=== PATIENT | female | born 1970 | race American Indian/Alaskan Native ===

== ENCOUNTER 2016-11-07 12:17 | Emergency (ER) | payer SELFPAY | END 2016-11-07 12:18 | disposition left against medical advice (07) | LOC: ED 12:17 | DX: M79.605 Pain in left leg (principal); Z53.21 Procedure and treatment not carried out due to patient leaving prior to being seen by health care provider ==

== ENCOUNTER 2016-11-10 15:31 | Emergency (ER) | payer SELFPAY ==
--- NOTE | 2016-11-10 20:09 | Emergency Department Report ---
ED Back Pain/Injury HPI - General Chief Complaint: Back Pain/Injury Stated Complaint: LOWER BACK PAIN - POSSIBLE PINCHED NERVE Time Seen by Provider: 11/10/16 19:44 Source: patient Mode of arrival: Ambulatory Limitations: No Limitations - History of Present Illness Initial Comments: PT states she drove herself to the ED for low back pain that radiates down L leg x 1 week. PT states the pain has been 10/10 for 1 week. 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 PT states she has had mild low back pain that radiates down L leg x 3-4 months. PT states she did not have a specific injury that she can recall. PT states the pain is worse sitting and driving. PT states she took Motrin at 1300 without relief. PT States she looked it up and she thinks she has a pinched nerve. Complaint: back pain -: Gradual, week(s) (worsened pain x 1 week ), month(s) (mild pain x months ) Similar Symptoms Previously: Yes Place: home, work Radiation: buttocks, left leg Severity: severe Severity scale (0 -10): 10 Quality: sharp Consistency: constant Improves With: none Worsens With: movement, sitting upright, walking Context: unknown Associated Symptoms: denies other symptoms. denies: difficulty urinating, incontinence, abdominal pain, nausea/vomiting - Related Data Previous Rx's Medication Instructions Recorded Last Taken Type Acetaminophen/Codeine [Tylenol #3] 1 tab PO Q6H PRN #12 tab 11/10/16 Unknown Rx methOCARBAMOL [Robaxin TAB] 500 mg PO Q6H PRN #15 tablet 11/10/16 Unknown Rx methylPREDNISolone [Medrol] 4 mg PO DAILY #1 tab.ds.pk 11/10/16 Unknown Rx Allergies Allergy/AdvReac Type Severity Reaction Status Date / Time No Known Allergies Allergy Verified 11/10/16 15:38 ED Review of Systems ROS: Stated complaint: LOWER BACK PAIN - POSSIBLE PINCHED NERVE Other details as noted in HPI Comment: All other systems reviewed and negative Constitutional: chills (cold in exam room ). denies: fever Cardiovascular: denies: chest pain, edema Gastrointestinal: denies: abdominal pain, nausea, vomiting Musculoskeletal: as per HPI, back pain Skin: denies: rash, change in color ED Past Medical Hx - Past Medical History Previous Medical History?: No - Surgical History Past Surgical History?: Yes Additional Surgical History: hysterectomy, knee - Social History Smoking Status: Never Smoker Substance Use Type: None - Medications Home Medications: Home Medications Medication Instructions Recorded Confirmed Last Taken Type Acetaminophen/Codeine [Tylenol #3] 1 tab PO Q6H PRN #12 tab 11/10/16 Unknown Rx methOCARBAMOL [Robaxin TAB] 500 mg PO Q6H PRN #15 tablet 11/10/16 Unknown Rx methylPREDNISolone [Medrol] 4 mg PO DAILY #1 tab.ds.pk 11/10/16 Unknown Rx ED Physical Exam - General Limitations: No Limitations General appearance: alert, in no apparent distress - Head Head exam: Present: atraumatic, normocephalic, normal inspection - Eye Eye exam: Present: normal appearance, PERRL. Absent: conjunctival injection Pupils: Present: normal accommodation - ENT ENT exam: Present: normal exam, mucous membranes moist, normal external ear exam - Neck Neck exam: Present: normal inspection, full ROM. Absent: tenderness, meningismus - Respiratory Respiratory exam: Present: normal lung sounds bilaterally. Absent: respiratory distress, chest wall tenderness - Cardiovascular Cardiovascular Exam: Present: regular rate, normal rhythm, normal heart sounds - GI/Abdominal GI/Abdominal exam: Present: soft, normal bowel sounds. Absent: distended, tenderness, guarding, rebound - Extremities Exam Extremities exam: Present: normal inspection, full ROM, normal capillary refill. Absent: tenderness, pedal edema, joint swelling, calf tenderness - Back Exam Back exam: Present: normal inspection, full ROM, tenderness, muscle spasm, paraspinal tenderness (L). Absent: CVA tenderness (R), CVA tenderness (L) - Expanded Back Exam Expanded Back exam: Absent: saddle anesthesia Back exam: Sciatic Notch Tenderness: Left, Negative Straight Leg Raising: Left, Right - Neurological Exam Neurological exam: Present: alert, oriented X3 - Psychiatric Psychiatric exam: Present: normal affect, normal mood - Skin Skin exam: Present: warm, dry, intact, normal color ED Course Vital Signs 11/10/16 15:38 Temperature 98.1 F Pulse Rate 74 Respiratory 16 Rate Blood Pressure 132/68 O2 Sat by Pulse 100 Oximetry - Reevaluation(s) Reevaluation #1: 11/10/16 20:09 PT aware of dx and plan of care. PT has no questions at this time. Reevaluation #2: 11/10/16 21:19 PT states her back is feeling better sp Solumedrol - Pulse Oximetry Interpretation Digit-Finger Initial Pulse Oximetry Readin Actions Taken: none ED Medical Decision Making - Differential Diagnosis strain, sciatica, Critical Care Time: No Critical care attestation.: If time is entered above; I have spent that time in minutes in the direct care of this critically ill patient, excluding procedure time. ED Disposition Clinical Impression: Low back pain Qualifiers: Chronicity: unspecified Back pain laterality: left Sciatica presence: with sciatica Sciatica laterality: sciatica of left side Qualified Code(s): M54.42 - Lumbago with sciatica, left side Disposition: TO HOME OR SELFCARE Is pt being admited?: No Does the pt Need Aspirin: No Condition: Stable Instructions: Sciatica (ED), Acute Low Back Pain (ED), Lumbar Radiculopathy (ED ) Additional Instructions: No driving or Alcohol after taking Robaxin or Tylenol #3 Prescriptions: Acetaminophen/Codeine [Tylenol #3] 1 tab PO Q6H PRN #12 tab PRN Reason: Pain , Severe (7-10) methOCARBAMOL [Robaxin TAB] 500 mg PO Q6H PRN #15 tablet PRN Reason: Muscle Spasm methylPREDNISolone [Medrol] 4 mg PO DAILY #1 tab.ds.pk Referrals: PRIMARY CARE, [Primary Care Provider] - 3-5 Days ORACIO LUQUE MD [Staff Physician] - 3-5 Days DENISE MAHAN MD [Staff Physician] - 3-5 Days [facility] [Outside] - 3-5 Days Forms: Work/School Release Form(ED) Time of Disposition: 21:20
[2016-11-10 23:32] VITALS: BP 141/79
== END 2016-11-10 21:35 | disposition home or self-care (01) ==
LOC: ED 15:31
DX: M54.5 Low back pain (principal)
CPT/HCPCS: 96372; 99282; J2930

== ENCOUNTER 2016-11-13 08:03 | Emergency (ER) | payer SELFPAY ==
[2016-11-13 08:18] VITALS: BP 105/49
[2016-11-13] MEDS ORDERED: ZOFRAN IM ONE (10:28)
[2016-11-13] MEDS ORDERED: DECADRON IM ONE (10:28)
[2016-11-13] MEDS ORDERED: MORPHINE IM ONE (10:28)
--- NOTE | 2016-11-13 11:35 | XRay Report ---
LUMBOSACRAL SPINE, 2 VIEWS History: Back pain. Findings: Limited nonstandard images are provided. There is normal height and alignment of the lumbar vertebra. No evidence for compression deformity or bone lesion. Moderate degenerative disc disease is suspected at L5-S1. The remaining levels are within normal limits. The sacrum and SI joints are unremarkable. Impression: Slightly limited exam with poor positioning of the patient. There is straightening of the normal lordosis and degenerative changes at L5-1. No acute process noted.
--- NOTE | 2016-11-13 11:36 | XRay Report ---
LEFT HIP, 2 views: History: Left hip pain. The bony architecture is intact without evidence of fracture or dislocation. No significant soft tissue abnormality is seen. IMPRESSION: Normal left hip.
--- NOTE | 2016-11-13 11:43 | Emergency Department Report ---
ED Extremity Problem HPI - General Chief complaint: Extremity Injury, Lower Stated complaint: BACK AND LEG PAIN Time Seen by Provider: 11/13/16 09:58 Source: patient Mode of arrival: Ambulatory Limitations: No Limitations - History of Present Illness Initial comments: Patient is a 46-year-old female who presents due to left lower back pain that radiates down to her left foot x one week. Patient states that she was seen here 3 days ago for similar complaints and was prescribed Robaxin, prednisone tapering pack, Tylenol with codeine. Patient states that these medications have not relieved her pain. Patient denies any falls or injury. Patient denies any numbness but admits of having tingling sensation in her left leg. Patient denies any history of chronic back pain. Patient denies any dysuria, hematuria or frequency. Patient denies any urinary or bowel incontinence, she denies any saddle anesthesia. MD Complaint: extremity pain Onset/Timin -: week(s) Location: left, lower extremity History of Same: No -: Yes myalgia, Yes arthralgia Radiation: distal Severity scale (0 -10): 8 Quality: aching Consistency: constant Improves with: nothing Worsens with: other (movement) Associated Symptoms: denies other symptoms - Related Data Previous Rx's Medication Instructions Recorded Last Taken Type Acetaminophen/Codeine [Tylenol #3] 1 tab PO Q6H PRN #12 tab 11/10/16 Unknown Rx methOCARBAMOL [Robaxin TAB] 500 mg PO Q6H PRN #15 tablet 11/10/16 Unknown Rx methylPREDNISolone [Medrol] 4 mg PO DAILY #1 tab.ds.pk 11/10/16 Unknown Rx Gabapentin [Neurontin] 300 mg PO BID #30 cap 11/13/16 Unknown Rx traMADol [Ultram 50 MG tab] 50 mg PO Q6HR PRN #15 tablet 11/13/16 Unknown Rx Allergies Allergy/AdvReac Type Severity Reaction Status Date / Time No Known Allergies Allergy Verified 11/10/16 15:38 ED Review of Systems ROS: Stated complaint: BACK AND LEG PAIN Other details as noted in HPI Comment: All other systems reviewed and negative Constitutional: no symptoms reported. denies: chills, fever Respiratory: no symptoms reported Gastrointestinal: denies: abdominal pain, nausea, vomiting, diarrhea, constipation Musculoskeletal: back pain, other (left leg pain). denies: joint swelling Neurological: denies: headache, weakness, numbness, paresthesias, confusion ED Past Medical Hx - Past Medical History Previous Medical History?: No - Surgical History Past Surgical History?: Yes Additional Surgical History: hysterectomy, knee - Social History Smoking Status: Never Smoker Substance Use Type: None - Medications Home Medications: Home Medications Medication Instructions Recorded Confirmed Last Taken Type Acetaminophen/Codeine [Tylenol #3] 1 tab PO Q6H PRN #12 tab 11/10/16 Unknown Rx methOCARBAMOL [Robaxin TAB] 500 mg PO Q6H PRN #15 tablet 11/10/16 Unknown Rx methylPREDNISolone [Medrol] 4 mg PO DAILY #1 tab.ds.pk 11/10/16 Unknown Rx Gabapentin [Neurontin] 300 mg PO BID #30 cap 11/13/16 Unknown Rx traMADol [Ultram 50 MG tab] 50 mg PO Q6HR PRN #15 tablet 11/13/16 Unknown Rx ED Physical Exam - General Limitations: No Limitations General appearance: alert, in no apparent distress - Head Head exam: Present: atraumatic, normocephalic, normal inspection - Neck Neck exam: Present: normal inspection. Absent: tenderness, meningismus, full ROM, lymphadenopathy - Respiratory Respiratory exam: Present: normal lung sounds bilaterally. Absent: respiratory distress, wheezes, rales, rhonchi, stridor, chest wall tenderness - Cardiovascular Cardiovascular Exam: Present: regular rate, normal rhythm - Expanded Lower Extremity Exam Left Hip exam: Present: full ROM Upper Leg exam: Present: normal inspection, full ROM, tenderness. Absent: swelling, abrasion, laceration, ecchymosis, deformity, crepidus, dislocation, erythema Knee exam: Present: normal inspection, full ROM. Absent: tenderness Lower Leg exam: Present: full ROM, tenderness. Absent: swelling, abrasion, laceration, ecchymosis, deformity, crepidus, dislocation, erythema, palpable cord, Marquis's sign Ankle exam: Present: normal inspection, full ROM. Absent: tenderness, swelling , abrasion, laceration, ecchymosis, deformity, crepidus, dislocation, erythema Foot/Toe exam: Present: normal inspection, full ROM. Absent: tenderness, swelling, abrasion, laceration, ecchymosis, deformity, crepidus, dislocation, erythema Neuro vascular tendon exam: Present: no vascular compromise. Absent: pulse deficit Gait: Positive: observed and normal - Back Exam Back exam: Present: normal inspection, full ROM. Absent: tenderness, CVA tenderness (R), CVA tenderness (L), muscle spasm, paraspinal tenderness, vertebral tenderness, rash noted - Neurological Exam Neurological exam: Present: alert, oriented X3, normal gait - Psychiatric Psychiatric exam: Present: normal affect, normal mood - Skin Skin exam: Present: warm, dry, intact ED Course Vital Signs 11/13/16 11/13/16 08:11 10:47 Temperature 98.5 F Pulse Rate 70 Respiratory 18 20 Rate Blood Pressure 105/49 O2 Sat by Pulse 99 Oximetry ED Medical Decision Making - Radiology Data Radiology results: report reviewed X-ray of the lumbar spine shows degenerative disc disease in L5 to S1, there was lower doses in the lumbar spine. X-ray of the left hip did not show any acute osseous findings. - Medical Decision Making Patient was in no acute distress, patient had pain with movement of her left leg , the pain was radiating from the left hip down to the left toes. Patient had tenderness with palpation of her entire left leg, she had no erythema, no edema , no skin injury. And was given morphine IM, Zofran IM and Decadron IM in the ER She will be discharged with a prescription for tramadol placed Tylenol with codeine that she stated wasn't helping her pain. Gabapentin will be added to her prescription. Patient will be given information follow-up with correctional treatment specialist. - Differential Diagnosis sciatica, peripheral neuropathy, muscle strain Critical care attestation.: If time is entered above; I have spent that time in minutes in the direct care of this critically ill patient, excluding procedure time. ED Disposition Clinical Impression: Peripheral neuropathic pain Sciatica Qualifiers: Laterality: left Qualified Code(s): M54.32 - Sciatica, left side Disposition: TO HOME OR SELFCARE Is pt being admited?: No Does the pt Need Aspirin: No Condition: Good Instructions: Sciatica (ED), Peripheral Neuropathy (ED) Additional Instructions: Take gabapentin 300 mg twice a day for pain. Tramadol 1 tablet every 6 hours as needed for severe pain. Follow-up with the provider correctional treatment specialist for further evaluation. Prescriptions: Gabapentin [Neurontin] 300 mg PO BID #30 cap traMADol [Ultram 50 MG tab] 50 mg PO Q6HR PRN #15 tablet PRN Reason: Pain Referrals: PRIMARY CARE, [Primary Care Provider] - 3-5 Days SVETLANA MANCERA MD [Staff Physician] - 3-5 Days Time of Disposition: 11:50
== END 2016-11-13 12:07 | disposition home or self-care (01) ==
LOC: ED 08:03
DX: M54.42 Lumbago with sciatica, left side (principal); G62.9 Polyneuropathy, unspecified
CPT/HCPCS: 72100; 73502; 96372; 99283; J1100; J2270; J2405